=== PATIENT | male | born 1955 | race Caucasian/White ===

== ENCOUNTER 2018-03-25 14:41 | Outpatient (CLI) | payer OTHER | END 2018-03-25 14:42 | disposition home or self-care (01) | LOC: SC 14:41 | PROVIDERS: ATTEND Internal Medicine Pulmonary Disease | DX: G47.30 Sleep apnea, unspecified (principal); R06.83 Snoring; G47.8 Other sleep disorders; G47.10 Hypersomnia, unspecified | CPT/HCPCS: 99203; 99212 ==

== ENCOUNTER 2018-05-07 20:49 | Outpatient (CLI) | payer OTHER | END 2018-05-07 20:50 | disposition home or self-care (01) | LOC: SC 20:49 | PROVIDERS: ATTEND Internal Medicine Pulmonary Disease | DX: G47.33 Obstructive sleep apnea (adult) (pediatric) (principal); G47.61 Periodic limb movement disorder | CPT/HCPCS: 95810 ==

== ENCOUNTER 2018-06-11 16:04 | Outpatient (CLI) | payer OTHER | END 2018-06-11 16:05 | disposition home or self-care (01) | LOC: SC 16:04 | PROVIDERS: ATTEND Nurse Practitioner Family | DX: G47.33 Obstructive sleep apnea (adult) (pediatric) (principal); G47.61 Periodic limb movement disorder; I49.9 Cardiac arrhythmia, unspecified | CPT/HCPCS: 99212; 99214 ==

== ENCOUNTER 2018-10-20 15:48 | Outpatient (CLI) | payer OTHER | END 2018-10-20 15:49 | disposition home or self-care (01) | LOC: SC 15:48 | PROVIDERS: ATTEND Nurse Practitioner Family | DX: G47.33 Obstructive sleep apnea (adult) (pediatric) (principal) | CPT/HCPCS: 99212; 99214 ==

== ENCOUNTER 2018-12-10 15:47 | Outpatient (CLI) | payer OTHER | END 2018-12-10 15:48 | disposition home or self-care (01) | LOC: SC 15:47 | PROVIDERS: ATTEND Nurse Practitioner Family | DX: G47.33 Obstructive sleep apnea (adult) (pediatric) (principal); G47.00 Insomnia, unspecified | CPT/HCPCS: 99212; 99214 ==